=== PATIENT | male | born 1960 | race Caucasian/White ===

== ENCOUNTER 2021-08-28 10:06 | Outpatient (CLI) | payer OTHER, SELFPAY | END 2021-08-28 10:07 | disposition home or self-care (01) | LOC: OP CLINIC 10:07 | PROVIDERS: PCP Physician Assistant Medical; Visit Provider Surgery | DX: Z12.11 Encounter for screening for malignant neoplasm of colon (principal); K63.5 Polyp of colon; Z86.010 Personal history of colon polyps | CPT/HCPCS: 45385; 88305; 99153; J1200; J2250; J3010 ==

== ENCOUNTER 2021-11-26 19:00 | Outpatient (CLI) | payer OTHER, SELFPAY ==
--- NOTE | 2021-12-23 09:05 | P.SLS_ITS ---
Sleep Study Details Details Interpreting Provider: Abhi Villagran MD Date of Sleep Study: 11/26/21 Sleep Study Details: STUDY TYPE:? Home ? BMI:? ORDERING PROVIDER:? 34.0 INDICATION:? Concerns about sleep apnea ? SLEEP SUMMARY:? 497 minutes monitored RESPIRATORY SUMMARY:? AHI 15.7, supine AHI 48.3, left lateral AHI 13.3 Low oxygen 79 2.1% of study oxygen less than 90% Snoring 5.1% PERIODIC LIMB MOVEMENTS OF SLEEP:? Not recorded CARDIAC:? Range 31 to 255, mean 50.8 IMPRESSION:? Both Vamshi and tachycardia were noted during this study. Moderate obstructive sleep apnea with supine position dependency RECOMMENDATION: Further cardiac evaluation may be indicated For the sleep apnea treatment could consist of AutoSet CPAP at a pressure of 4- 17. Dental appliance may be a consideration as well
== END 2021-11-26 19:01 | disposition home or self-care (01) ==
LOC: SLEEP 12-22 13:07
PROVIDERS: PCP Physician Assistant Medical; Visit Provider Physician Assistant Medical
DX: G47.33 Obstructive sleep apnea (adult) (pediatric) (principal)
CPT/HCPCS: 95806

== ENCOUNTER 2022-02-11 08:01 | Outpatient (CLI) | payer OTHER, SELFPAY ==
[2022-02-11 14:19] LABS: Albumin* 4.9 g/dL (3.3-5.0)
[2022-02-11 14:21] LABS: Bilirubin Direct* 0.2 mg/dL (0.0-0.5); Bilirubin Total* 0.6 mg/dL (0.1-1.5); Cholesterol* 202 mg/dL (90-199); Total Protein* 7.6 g/dL (6.0-8.3); Triglycerides* 62 mg/dL (40-149)
[2022-02-11 14:22] LABS: Alanine Aminotransferase* 48 U/L (4-50); Alkaline Phosphatase* 54 U/L (40-150); Aspartate Amino Transferase* 36 U/L (12-35); HDL Cholesterol* 75 mg/dL (>=40); LDL Cholesterol Calculated 115 mg/dL (<100)
== END 2022-02-11 08:02 | disposition home or self-care (01) ==
PROVIDERS: PCP Physician Assistant Medical; Visit Provider Physician Assistant Medical
DX: E78.5 Hyperlipidemia, unspecified (principal); I10 Essential (primary) hypertension; R73.03 Prediabetes
CPT/HCPCS: 80061; 80076

== ENCOUNTER 2022-08-07 08:48 | Outpatient (CLI) | payer OTHER, SELFPAY ==
--- NOTE | 2022-08-07 09:00 | CRLHL7_ITS ---
For Patients: As a result of the Century Cures Act, medical imaging exams and procedure reports are released immediately into your electronic medical record. You may view this report before your referring provider. If you have questions, please contact your health care provider. CLINICAL HISTORY: Bilateral lower extremity swelling. 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 TECHNIQUE: Grayscale, color Doppler and compression sonography of the bilateral lower extremity deep venous systems was performed. COMPARISON: None. FINDINGS: There is no evidence for DVT in the bilateral lower extremities. Color flow, compressibility, and respiratory variation are seen in the bilateral lower extremity deep venous systems. There is no intraluminal echogenic material within these veins to suggest thrombus. Left greater saphenous vein is absent throughout the thigh. There is a complex hypoechoic avascular collection in the left thigh measuring up to 21.4 cm which may represent postoperative hematoma. IMPRESSION: 1. No evidence for DVT in the bilateral lower extremities. 2. 21.4 cm hypoechoic avascular collection in the left thigh which may represent postoperative hematoma from greater saphenous vein harvesting. Dictated by Marlon Farmer MD @ 08/07/2022 10:26:20 AM (Electronically Signed)
== END 2022-08-07 08:49 | disposition home or self-care (01) ==
LOC: US 08:49
PROVIDERS: PCP Physician Assistant Medical; Visit Provider Physician Assistant Medical
DX: R22.43 Localized swelling, mass and lump, lower limb, bilateral (principal); R60.0 Localized edema
CPT/HCPCS: 93970

== ENCOUNTER 2022-09-10 11:10 | Outpatient (CLI) | payer OTHER, SELFPAY | END 2022-09-10 11:11 | disposition home or self-care (01) | PROVIDERS: PCP Physician Assistant Medical; Visit Provider Physician Assistant Medical | DX: E78.5 Hyperlipidemia, unspecified (principal); E87.5 Hyperkalemia | CPT/HCPCS: 80061 ==

== ENCOUNTER 2023-02-01 22:23 | Outpatient (REF) | payer OTHER, SELFPAY ==
[2023-02-01 23:26] LABS: Chloride* 101 mmol/L (96-114); Potassium* 5.1 mmol/L (3.6-5.1); Sodium* 137 mmol/L (135-149)
[2023-02-01 23:29] LABS: Anion Gap 4 mEq/L (7-15); Blood Urea Nitrogen* 14 mg/dL (7-30); Carbon Dioxide* 32 mmol/L (20-32); Creatinine* 0.8 mg/dL (0.5-1.5); Estimated Glomerular Filt Rate 101 ml/min; Glucose* 120 mg/dL (60-115)
[2023-02-01 23:30] LABS: Calcium* 9.9 mg/dL (8.4-10.6)
== END 2023-02-01 22:24 | disposition home or self-care (01) ==
LOC: NPINS 22:23
PROVIDERS: PCP Physician Assistant Medical
DX: I10 Essential (primary) hypertension (principal)
CPT/HCPCS: 80048

== ENCOUNTER 2023-11-03 13:05 | Outpatient (CLI) | payer OTHER, SELFPAY | END 2023-11-03 13:06 | disposition home or self-care (01) | PROVIDERS: PCP Physician Assistant Medical; Visit Provider Physician Assistant Medical | DX: Z12.5 Encounter for screening for malignant neoplasm of prostate (principal) | CPT/HCPCS: G0103 ==

== ENCOUNTER 2024-09-07 07:27 | Outpatient (CLI) | payer OTHER, SELFPAY ==
--- NOTE | 2024-09-07 08:53 | P.ANES_ITS ---
Anesthesia Charges Start Date/Time Anesthesia Start Date: 09/07/24 Anesthesia Start Time: 08:15 Stop Date/Time Anesthesia Stop Date: 09/07/24 Anesthesia Stop Time: 08:54 Coding CPT Codes CPT Codes: ANES LWR INTST NDSC NOS - [id number] ([id number]) P3 - PATIENT W/SEVERE SYS DISEASE, QK - BARREL SCRAPER 2-4 CNCRNT ANES PROC, QX - DIRECTOR RELIGIOUS EDUCATION SVC W/ MD MED DIRECTION
--- NOTE | 2024-09-07 08:53 | W.ANESCHARGE ---
Anesthesia Charges Start Date/Time Anesthesia Start Date: 09/07/24 Anesthesia Start Time: 08:15 Stop Date/Time Anesthesia Stop Date: 09/07/24 Anesthesia Stop Time: 08:54 Coding CPT Codes CPT Codes: ANES LWR INTST NDSC NOS - [id number] ([id number]) P3 - PATIENT W/SEVERE SYS DISEASE, QK - PLOW SHAKER 2-4 CNCRNT ANES PROC, QX - FLOOR COVERER SVC W/ MD MED DIRECTION
--- NOTE | 2024-09-07 08:55 | P.ANES_ITS ---
Anesthesia Charges Start Date/Time Anesthesia Start Date: 09/07/24 Anesthesia Start Time: 08:15 Stop Date/Time Anesthesia Stop Date: 09/07/24 Anesthesia Stop Time: 08:54 Coding CPT Codes CPT Codes: ANES LWR INTST NDSC NOS - [id number] ([id number]) QK - HUMAN RESOURCE ADVISOR 2-4 CNCRNT ANES PROC, P3 - PATIENT W/SEVERE SYS DISEASE, QX - FISHER TRAP SVC W/ MD MED DIRECTION
--- NOTE | 2024-09-07 08:55 | W.ANESCHARGE ---
Anesthesia Charges Start Date/Time Anesthesia Start Date: 09/07/24 Anesthesia Start Time: 08:15 Stop Date/Time Anesthesia Stop Date: 09/07/24 Anesthesia Stop Time: 08:54 Coding CPT Codes CPT Codes: ANES LWR INTST NDSC NOS - [id number] ([id number]) QK - RN FIRST ASSIST 2-4 CNCRNT ANES PROC, P3 - PATIENT W/SEVERE SYS DISEASE, QX - WOOD TANK BUILDER SVC W/ MD MED DIRECTION
== END 2024-09-07 07:28 | disposition home or self-care (01) ==
LOC: OP CLINIC 07:28
PROVIDERS: PCP Physician Assistant Medical; Visit Provider Surgery
DX: Z12.11 Encounter for screening for malignant neoplasm of colon (principal); Z86.0100 Personal history of colon polyps, unspecified; D12.3 Benign neoplasm of transverse colon; D12.8 Benign neoplasm of rectum
CPT/HCPCS: 00811; 00812; 45385; 88305; J2704